=== PATIENT | male | born 1985 | race African-American/Black ===

== ENCOUNTER 2017-08-10 18:47 | Emergency (ER) | payer OTHER | END 2017-08-10 22:27 | disposition home or self-care (01) | LOC: M ED 18:47 | DX: M25.511 Pain in right shoulder (principal); G89.29 Other chronic pain; I10 Essential (primary) hypertension; F17.200 Nicotine dependence, unspecified, uncomplicated; Z79.899 Other long term (current) drug therapy | CPT/HCPCS: 73030 ==

== ENCOUNTER → 2017-09-01 | Outpatient (CLI) | payer OTHER ==
[~2017-09-01] MED LIST: CONRAY-43 43% 50ML VIAL (Q9960) As Ordered; PROHANCE 279.3MG/ML 5ML VIAL (A9576) As Ordered
== END ==
LOC: M RADPRO 06:35
DX: M75.81 Other shoulder lesions, right shoulder (principal)
CPT/HCPCS: 23350

== ENCOUNTER 2018-01-03 22:18 | Emergency (ER) | payer OTHER ==
[2018-01-04] MEDS: BACTRIM 160MG/800MG DS TAB PO (00:03)
== END 2018-01-04 00:43 | disposition home or self-care (01) ==
LOC: M ED 01-04 00:43
DX: K61.1 Rectal abscess (principal); I10 Essential (primary) hypertension; Z79.899 Other long term (current) drug therapy
CPT/HCPCS: 99282

== ENCOUNTER 2018-02-24 19:13 | Emergency (ER) | payer OTHER | END 2018-02-24 20:05 | disposition home or self-care (01) | LOC: M ED 19:13 | DX: M25.562 Pain in left knee (principal); M25.462 Effusion, left knee; I10 Essential (primary) hypertension; Z72.0 Tobacco use; Z79.899 Other long term (current) drug therapy | CPT/HCPCS: 73564 ==